=== PATIENT | male | born 1965 | race Caucasian/White ===

== ENCOUNTER 2022-01-02 00:21 | Emergency (ER) | payer BC ==
[~2022-01-02 00:21] MED LIST: PERCOCET 5-3251 EACH PO
[2022-01-02 00:49] LABS: HEMOGLOBIN 15.8 gm/dl (14.0-17.5); RED BLOOD COUNT 4.94 M/UL (4.20-5.50); WHITE BLOOD COUNT 11.7 K/UL (4.5-11.0)
[2022-01-02 02:20] LABS: BUN/CREATININE RATIO 9 (0-10)
== END 2022-01-02 03:20 | disposition left against medical advice (07) ==
LOC: ER1 00:21
PROVIDERS: Student in an Organized Health Care Education/Training Program
DX: R41.0 Disorientation, unspecified (principal); F17.210 Nicotine dependence, cigarettes, uncomplicated; Z20.822 Contact with and (suspected) exposure to COVID-19
CPT/HCPCS: 70450; 71045; 80053; 80307; 81001; 82550; 82553; 83605; 84439; 84443; 84484; 85025; 87040; 87086; 93005; 99283; G0480; U0002